=== PATIENT | male | born 1975 | race Caucasian/White ===

== ENCOUNTER 2023-09-22 19:45 | Emergency (ER) | payer OTHER ==
[~2023-09-22] VITALS: Ht 175.2 cm; Wt 85.5 kg
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
[2023-09-22 20:48] LABS: BASOPHILS # (AUTO) 0.1 10^3/uL (0.0-0.1); BASOPHILS % (AUTO) 0 % (0-10); EOSINOPHILS % (AUTO) 0 % (0-10); HEMATOCRIT 47 % (40-54); HEMOGLOBIN 16.5 g/dL (13.3-17.7); LYMPHOCYTES # (AUTO) 1.4 10^3/uL (1.0-4.0); LYMPHOCYTES % (AUTO) 5 % (12-44); MEAN CORPUSCULAR HEMOGLOBIN 31 pg (25-34); MEAN CORPUSCULAR HGB CONC 35 g/dL (32-36); MEAN CORPUSCULAR VOLUME 89 fL (80-99); MEAN PLATELET VOLUME 9.6 fL (9.0-12.2); MONOCYTES # (AUTO) 2.5 10^3/uL (0.0-1.0); MONOCYTES % (AUTO) 8 % (0-12); NEUTROPHILS # (AUTO) 25.2 10^3/uL (1.8-7.8); NEUTROPHILS % (AUTO) 86 % (42-75); PLATELET COUNT 221 10^3/uL (130-400); WHITE BLOOD COUNT 29.4 10^3/uL (4.3-11.0)
[2023-09-22 20:59] LABS: POTASSIUM 4.1 MMOL/L (3.6-5.0); SODIUM 142 MMOL/L (135-145)
[2023-09-22 21:00] LABS: BILIRUBIN,TOTAL 1.5 MG/DL (0.1-1.0); CALCIUM 9.7 MG/DL (8.5-10.1); CARBON DIOXIDE 20 MMOL/L (21-32); CHLORIDE 102 MMOL/L (98-107); MAGNESIUM 2.8 MG/DL (1.6-2.4); TOTAL PROTEIN 7.7 GM/DL (6.4-8.2)
[2023-09-22 21:01] LABS: GLUCOSE 62 MG/DL (70-105)
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
[2023-09-22 21:04] LABS: ALANINE AMINOTRANSFERASE 53 U/L (0-55); ALBUMIN 4.8 GM/DL (3.2-4.5); ALKALINE PHOSPHATASE 86 U/L (40-136); BUN/CREATININE RATIO 22; CREATININE SERUM 1.12 MG/DL (0.60-1.30); GFR ESTIMATED 81
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
[2023-09-22 21:16] LABS: BILIRUBIN,URINE 1+ (NEGATIVE); CLARITY,URINE CLEAR; GLUCOSE, URINE (UA) NEGATIVE (NEGATIVE); KETONES,URINE 2+ (NEGATIVE); LEUKOCYTE ESTERASE ,URINE NEGATIVE (NEGATIVE); NITRITE,URINE NEGATIVE (NEGATIVE); PROTEIN,URINE 2+ (NEGATIVE)
[2023-09-22 21:19] LABS: COLOR,URINE DARK YELLOW
[2023-09-22 21:20] LABS: BACTERIA,URINE LARGE /HPF; HYALINE CASTS, URINE 25-50 /LPF
[2023-09-22 21:27] LABS: AMPHETAMINE SCREEN, URINE NEGATIVE (NEGATIVE); BARBITURATE SCREEN URINE NEGATIVE (NEGATIVE); CANNABINOID SCREEN, URINE POSITIVE (NEGATIVE); COCAINE SCREEN URINE NEGATIVE (NEGATIVE); METHADONE STAT NEGATIVE (NEGATIVE); OPIATE SCREEN URINE NEGATIVE (NEGATIVE); OXYCODONE STAT NEGATIVE (NEGATIVE); PROPOXYPHENE STAT NEGATIVE (NEGATIVE); TRICYCLIC ANTIDEPRESSANTS SCRE NEGATIVE (NEGATIVE)
[2023-09-22] MEDS ORDERED: LIDOCAINE 1% INJ 20 ML VIAL INJ ONE (21:30)
[2023-09-22] MEDS ORDERED: cefTRIAXone 1,000 MG VIAL IV/IM IM ONE (21:30)
[2023-09-22 21:31] LABS: LYMPHOCYTES % (MANUAL) 2 %; NEUTROPHILS % (MANUAL) 87 %
[2023-09-22 21:32] LABS: MONOCYTES % (MANUAL) 11 %
[2023-09-22] MEDS ORDERED: CEPH500T PO (21:45)
[2023-09-22 22:10] VITALS: BP 127/83
== END 2023-09-22 22:10 ==
LOC: ER FS 19:47
DX: S80.11XA Contusion of right lower leg, initial encounter (principal); S80.12XA Contusion of left lower leg, initial encounter; N30.01 Acute cystitis with hematuria; E86.0 Dehydration; F12.10 Cannabis abuse, uncomplicated; Z02.79 Encounter for issue of other medical certificate; V48.9XXA Unspecified car occupant injured in noncollision transport accident in traffic accident, initial encounter; Y92.410 Unspecified street and highway as the place of occurrence of the external cause
CPT/HCPCS: 36415; 71111; 72170; 73552; 73590; 80053; 80306; 81000; 83735; 85007; 85027; 87088; 96372; 99283; G0480; 80320